=== PATIENT | female | born 1990 | race Caucasian/White ===

== ENCOUNTER 2017-03-24 16:25 | Observation (INO) | payer OTHER ==
[~2017-03-24] VITALS: Ht 170.2 cm; Wt 81.6 kg
[2017-03-24] MEDS ORDERED: ONDANSETRON 4 MG/2 ML VIAL IVP PRN (17:10)
[2017-03-24] MEDS ORDERED: LACTATED RINGERS 1,000 ML IV SCH (17:10)
[2017-03-24 17:17] VITALS: BP 118/65
[2017-03-24] MEDS ORDERED: PREN-380 PO (17:33)
[2017-03-24] MEDS ORDERED: ONDANSETRON 4 MG/2 ML VIAL ONE (17:39)
[2017-03-24] MEDS ORDERED: INFLUENZA VIRUS VACCINE QUAD 0.5 ML SYR IMVAC SCH (22:00)
== END 2017-03-24 19:40 | disposition left against medical advice (07) ==
LOC: MLD 16:25
PROVIDERS: ADMIT Obstetrics & Gynecology; ATTEND Obstetrics & Gynecology
DX: O21.2 Late vomiting of pregnancy (principal); Z3A.32 32 weeks gestation of pregnancy
CPT/HCPCS: 76805; 96361; 96374; G0378; J2405; J7120; Q0092

== ENCOUNTER 2017-04-20 15:10 | Inpatient (IN) | payer OTHER ==
[~2017-04-20] VITALS: Ht 154.9 cm; Wt 84.4 kg
[~2017-04-20 15:10] MED LIST: PREN-380 PO
[2017-04-20] MEDS ORDERED: METHYLERGONOVINE 0.2 MG/ML AMP IM PRN (16:05)
[2017-04-20] MEDS ORDERED: NALBUPHINE HYDROCHLORIDE 10 MG/ML VIAL IVP PRN (16:05)
[2017-04-20] MEDS ORDERED: OXYTOCIN 10 UNITS/ML VIAL IM SCH (16:05)
[2017-04-20] MEDS ORDERED: CARBOPROST 250 MCG/ML AMP IM PRN (16:05)
[2017-04-20] MEDS ORDERED: PROMETHAZINE 25 MG/ML VIAL IVP PRN (16:05)
[2017-04-20 16:13] VITALS: BP 116/68
[2017-04-20 16:57] LABS: BASOPHILS # (AUTO) 0.1 K/uL (0.00-0.22); BASOPHILS % (AUTO) 1.2 % (0.0-2.0); EOSINOPHILS # (AUTO) 0.1 K/uL (0-0.4); HEMATOCRIT 34.3 % (36-48); LYMPHOCYTES # (AUTO) 2.2 K/uL (2.5-16.5); LYMPHOCYTES % (AUTO) 24.7 % (20.5-51.1); MEAN CORPUSCULAR HEMOGLOBIN 31 pg (27-31); MEAN CORPUSCULAR HGB CONC 35 g/dL (33-37); MEAN CORPUSCULAR VOLUME 89 fL (80-94); MONOCYTES # (AUTO) 0.6 K/uL (0.8-1.0); MONOCYTES % (AUTO) 6.1 % (1.7-9.3); NEUTROPHILS # (AUTO) 6.1 K/uL (1.8-7.7); PLATELET COUNT (AUTO) 301 K/uL (140-450); RED BLOOD CELL COUNT(AUTO) 3.84 MIL/uL (4.20-5.40); RED CELL DISTRIBUTION WIDTH 12.7 % (11.6-13.7); WHITE BLOOD COUNT (AUTO) 9.1 K/uL (4.8-10.8)
[2017-04-20 17:08] LABS: BILIRUBIN,URINE NEGATIVE (NEGATIVE); BLOOD, URINE NEGATIVE (NEGATIVE); COLOR,URINE YELLOW (YELLOW); LEUKOCYTE ESTERASE ,URINE 1+ (NEGATIVE); NITRITE, URINE NEGATIVE (NEGATIVE); UGLUCOSE NEGATIVE (NEGATIVE)
[2017-04-20 17:14] LABS: APPEARANCE,URINE HAZY (CLEAR)
[2017-04-20 17:39] LABS: BARBITURATE, URINE NEGATIVE ng/ml (NEG <=200); BENZODIAZEPINE, URINE NEGATIVE ng/mL (NEG <=200); CALCIUM OXALATE CRYSTALS,UR 0-10 /HPF (None Seen); CANNABINOID, URINE NEGATIVE ng/mL (NEG <=50); COCAINE, URINE NEGATIVE ng/mL (NEG <=300); OPIATE, URINE NEGATIVE ng/mL (NEG <=2000); PHENCYCLIDINE SCREEN,URINE NEGATIVE ng/mL (NEG <=25); RBC,URINE NONE SEEN /HPF (0-5)
[2017-04-20 17:41] LABS: ALBUMIN 2.6 g/dL (3.4-5.0); ANION GAP 17.6 (8-16); CARBON DIOXIDE 21.2 mmol/L (21-32); CREATININE 0.7 mg/dL (0.6-1.3); POTASSIUM 3.8 mmol/L (3.5-5.1); TOTAL BILIRUBIN 0.3 mg/dL (0.0-1.0)
[2017-04-20] MEDS: LACTATED RINGERS 1,000 ML IV SCH (17:45)
[2017-04-20] MEDS ORDERED: MISOPROSTOL 25 MCG TAB ONE (17:57)
[2017-04-20] MEDS ORDERED: MISOPROSTOL 25 MCG TAB VG SCH (20:00)
[2017-04-20] MEDS ORDERED: OXYTOCIN 20 UNITS in LACTATED RINGERS 1,000 ML IV SCH (20:45)
[2017-04-20] MEDS ORDERED: OXYTOCIN 20 UNITS/LR PREMIX 1,000 ML IV ONE (22:05)
[2017-04-21] MEDS: LACTATED RINGERS 1,000 ML IV SCH ×3 (00:39→11:19)
[2017-04-21] MEDS ORDERED: NALBUPHINE HYDROCHLORIDE 10 MG/ML VIAL ONE (01:35)
[2017-04-21] MEDS ORDERED: PROMETHAZINE 25 MG/ML VIAL ONE (01:35)
[2017-04-21] MEDS ORDERED: BUPIVACAINE 0.125%/NS PREMIX 250 ML EPI SCH (09:10)
--- NOTE | 2017-04-21 09:36 | NUR ---
PATIENT HAS BEEN SCREENED AND CATEGORIZED LOW RISK. PATIENT WILL BE SEEN WITHIN 7 DAYS OF ADMISSION. 04/27/[address], [facility]
[2017-04-21] MEDS ORDERED: OXYTOCIN 10 UNITS/ML VIAL ONE (15:16)
[2017-04-21] MEDS ORDERED: TEMAZEPAM 15 MG CAP PO PRN (15:40)
[2017-04-21] MEDS ORDERED: SODIUM PHOSPHATE 118 ML ENEM RC PRN (15:40)
[2017-04-21] MEDS ORDERED: METHYLERGONOVINE 0.2 MG/ML AMP IM PRN (15:40)
[2017-04-21] MEDS ORDERED: METHYLERGONOVINE 0.2 MG TAB PO PRN (15:40)
[2017-04-21] MEDS ORDERED: MEASLES, MUMPS, AND RUBELLA 1 VIAL SQVAC PRN (15:40)
[2017-04-21] MEDS ORDERED: OXYTOCIN 10 UNITS/ML VIAL IM PRN (15:40)
[2017-04-21] MEDS ORDERED: BENZOCAINE/MENTHOL 20%-0.5% 60 GM CAN TP PRN (15:40)
[2017-04-21] MEDS ORDERED: oxyCODONE/APAP 5/325 MG 1 TAB TAB ONE (17:13)
[2017-04-21] MEDS: oxyCODONE/APAP 5/325 MG 1 TAB TAB PO PRN (17:16)
[2017-04-21] MEDS ORDERED: AMMONIA AROMATIC 1 INHL INH ONE (17:29)
[2017-04-21] MEDS ORDERED: DOCUSATE SOD/SENNA 50/8.6 MG 1 TAB PO SCH (21:00)
[2017-04-22] MEDS: HYDROcodone/APAP 5/325 MG 1 TAB TAB PO PRN ×2 (02:48→13:31)
[2017-04-22 07:59] LABS: HEMOGLOBIN 12.2 g/dL (12.0-16.0)
[2017-04-22] MEDS: oxyCODONE/APAP 5/325 MG 1 TAB TAB PO PRN ×2 (08:42→18:27)
[2017-04-22] MEDS ORDERED: CEPHALEXIN 500 MG CAP PO SCH (14:29)
[2017-04-22] MEDS ORDERED: NITROFURANTOIN 100 MG CAP PO SCH (17:00)
[2017-04-22] MEDS: CEPHALEXIN 500 MG CAP PO SCH (20:41)
[2017-04-22] MEDS ORDERED: DOCUSATE SOD/SENNA 50/8.6 MG 1 TAB PO SCH (21:00)
[2017-04-23] MEDS: CEPHALEXIN 500 MG CAP PO SCH (08:21)
== END 2017-04-23 13:00 | disposition home or self-care (01) | DRG 560 ==
LOC: MLD 15:10 → MFCC 04-21 18:15
PROVIDERS: ADMIT Obstetrics & Gynecology; ATTEND Obstetrics & Gynecology
PROC: 10E0XZZ Delivery of Products of Conception, External Approach (ICD-10-PCS; principal; 2017-04-21)
PROC: 10907ZC Drainage of Amniotic Fluid, Therapeutic from Products of Conception, Via Natural or Artificial Opening (ICD-10-PCS; 2017-04-21)
PROC: 00HU33Z Insertion of Infusion Device into Spinal Canal, Percutaneous Approach (ICD-10-PCS; 2017-04-21)
PROC: 3E0R3BZ Introduction of Anesthetic Agent into Spinal Canal, Percutaneous Approach (ICD-10-PCS; 2017-04-21)
DX: O99.214 Obesity complicating childbirth (principal); E66.9 Obesity, unspecified; Z37.0 Single live birth; Z68.35 Body mass index [BMI] 35.0-35.9, adult; Z3A.39 39 weeks gestation of pregnancy
CPT/HCPCS: 36415; 59200; 59409; 80053; 80305; 81001; 85018; 85025; 86592; 86886; 86900; 86901; 87086; 87186; J2300; J2550; J2590; J3490; J7120